=== PATIENT | female | born 1985 | race Caucasian/White ===

== ENCOUNTER 2017-02-12 11:29 | Inpatient (IN) | payer OTHER ==
[2017-02-12] VITALS (12 sets, daily range): BP systolic 113–141; BP diastolic 74–91
[~2017-02-12] VITALS: Ht 165.1 cm; Wt 62.1 kg
[2017-02-12] MEDS ORDERED: PRENATAL TABLE1 EAC3 PO (12:15)
[2017-02-12 12:38] LABS: EOSINOPHIL (%) 0.6 % (0-5); EOSINOPHIL COUNT 0.1 K/uL (0-0.3); HEMATOCRIT 42.8 % (36.0-46.0); IMMATURE GRANULOCYTE (%) 0.4 % (0.0-0.7); MCH 29.2 PG (29.0-34.0); MCHC 33.6 G/DL (30.0-36.0); MCV 86.8 FL (83-99); MEAN PLAT.VOLUME 11.5 uM^3 (9.5-12.4); MONOCYTE (%) 8.2 % (3-12); MONOCYTE COUNT 0.7 K/uL (0-0.8); NEUTROPHIL (%) 67.7 % (45-76); PLATELET COUNT 157 K/uL (156-360); RBC DIS.WIDTH-CV 13.2 % (11.8-14.6); RBC DIS.WIDTH-SD 41.4 % (39-53); RED BLOOD COUNT 4.93 M/uL (3.80-5.20); WHITE BLOOD COUNT 8.9 K/uL (4.1-10.2)
[2017-02-13] VITALS (10 sets, daily range): BP systolic 106–141; BP diastolic 65–92
[2017-02-13] MEDS ORDERED: IBUPROFEN800 MG PO (01:16)
[2017-02-14 15:41] VITALS: BP 122/82
[2017-02-14 23:50] VITALS: BP 127/79
[2017-02-15 07:00] VITALS: BP 129/79
== END 2017-02-15 14:07 | disposition home or self-care (01) | DRG 775 ==
LOC: LDRP-OP 11:29 → 2WEST 11:30 → LDRP-OP 02-13 07:20 → 2WEST 02-15 14:07 → LDRP-OP 03-03 15:35
PROVIDERS: Advanced Practice Midwife
DX: O48.0 Post-term pregnancy (principal); O70.1 Second degree perineal laceration during delivery; Z37.0 Single live birth; Z3A.41 41 weeks gestation of pregnancy
CPT/HCPCS: 85025; G0378; J0595